=== PATIENT | male | born 1935 | race Caucasian/White ===

== ENCOUNTER 2016-11-06 20:58 | Observation (INO) | payer OTHER ==
[~2016-11-06] VITALS: Ht 162.6 cm; Wt 78.0 kg
[~2016-11-06 20:58] MED LIST: ADVAIR 250/501 DISK IH; ASPIRIN325 MG PO; LESCOL40 MG PO; LEVOTHYROXINE50 MCG PO; LEVOTHYROXINE75 MCG PO; LIPITOR80 MG PO; MAVIK4 MG PO; MOBIC15 MG PO; SERTRALINE HCL50 MG PO; SPIRIVA1 INHALATI IH; ZOCOR40 MG PO
[2016-11-06 22:18] LABS: CHLORIDE 111 mEq/L (99-109); POTASSIUM 4.1 mEq/L (3.7-5.4); SODIUM 141 mEq/L (136-147)
[2016-11-06 22:20] LABS: GLUCOSE 119 mg/dL (70-99); HEMATOCRIT 38.5 % (38.0-50.0); MCH 33.9 PG (29.0-34.0); MCHC 34.5 G/DL (30.0-36.0); MCV 98.2 FL (86-99); MEAN PLAT.VOLUME 12.4 uM^3 (9.0-12.4); PLATELET COUNT 121 K/uL (156-360); RBC DIS.WIDTH-CV 13.4 % (11.8-14.6); RBC DIS.WIDTH-SD 48.8 % (39-53); RED BLOOD COUNT 3.92 M/uL (4.00-5.50); WHITE BLOOD COUNT 4.5 K/uL (4.1-10.2)
[2016-11-06 22:21] LABS: ANION GAP 6 MEQ/L (2-14)
[2016-11-06 22:24] LABS: GFR ESTIMATE (CALCULATED) > 59 mL/min/
[2016-11-06 22:25] LABS: UREA NITROGEN (BUN) 27 mg/dL (9-23)
[2016-11-07 00:42] LABS: INTER. NORMALIZED RATIO 1.1; PROTHROMBIN TIME 10.7 (9.2-11.2); PTT 25.3 (25-32)
[2016-11-07 00:46] LABS: TOTAL BILIRUBIN 0.3 mg/dL (0.0-1.0)
[2016-11-07 00:47] LABS: ALKALINE PHOSPHATASE 68 IU/L (3-129)
[2016-11-07 00:48] LABS: ADD MIUA? NO; BILIRUBIN NEGATIVE; BLOOD NEGATIVE; COLOR YELLOW ((YELLOW)); GLUCOSE (STRIP) NEGATIVE; KETONES NEGATIVE; LEUKOCYTES NEGATIVE; NITRITE NEGATIVE; PROTEIN (STRIP) NEGATIVE; SPECIFIC GRAVITY 1.017 (1.000-1.030); UCUL ADDED? NO; UROBILINOGEN 0.2 MG/DL (0.2-1.0)
[2016-11-07 00:50] LABS: DIRECT BILIRUBIN 0.1 mg/dL (0.0-0.3)
[2016-11-07 00:51] LABS: LIPASE 150 U/L (1.0-51.0)
[2016-11-07 01:03] LABS: TROP-I INTERPRETATION NEGATIVE; TROPONIN-I < 0.01 ng/mL (0.0-0.30)
[2016-11-07] MEDS ORDERED: LITE COAT ASPI325 M1 PO (01:07)
[2016-11-07] MEDS ORDERED: LIPITOR80 MG PO (01:07)
[2016-11-07 03:36] LABS: SERUM ETHYL ALCOHOL < 10 mg/dL
[2016-11-07 04:16] LABS: HDL CHOLESTEROL 38 MG/DL (Desirable>=40); LDL CHOLESTEROL 55 mg/dL (Desirable<100); NON-HDL CHOLESTEROL 92 mg/dL (Desirable<160); TOTAL CHOLESTEROL 130 mg/dL (Desirable<200); TRIGLYCERIDES 183 MG/DL (Normal: <150)
[2016-11-07 07:12] LABS: Estimated Average Glucose 140 mg/dL (70-123); HEMOGLOBIN A1c (GLYCOHEMOGLOB) 6.5 % HGB (Below 5.7)
[2016-11-07 08:38] VITALS: BP 146/87
[2016-11-07 11:47] VITALS: BP 175/86
[2016-11-07 11:56] LABS: AMPHETAMINES QUANT VALUE 0 NG/ML; BARBITUATES QUANT VALUE 0 NG/ML; BENZODIAZEPINES QUANT VALUE 0 NG/ML; BENZODIAZEPINES, URINE SCREEN Negative (200 ng/mL); MARIJUANA QUANT VALUE 0 NG/ML; OPIATES QUANTITATIVE VALUE 0 NG/ML; PHENCYCLIDINE QUANT VALUE 0 NG/ML
[2016-11-07 15:35] VITALS: BP 116/59
[2016-11-07 21:55] VITALS: BP 154/83
[2016-11-08 04:00] VITALS: BP 184/84
[2016-11-08 06:09] LABS: EOSINOPHIL (%) 7.9 % (0-5); EOSINOPHIL COUNT 0.4 K/uL (0-0.3); HEMATOCRIT 36.6 % (38.0-50.0); IMMATURE GRANULOCYTE (%) 0.2 % (0.0-0.7); INSTRUMENT ABS NEUTROPHIL CT 1.5 K/uL; LYMPHOCYTE COUNT 2.3 K/uL (1.0-2.8); MCH 34.5 PG (29.0-34.0); MCHC 35.2 G/DL (30.0-36.0); MCV 97.9 FL (86-99); MEAN PLAT.VOLUME 12.1 uM^3 (9.0-12.4); MONOCYTE COUNT 0.5 K/uL (0-0.8); NEUTROPHIL (%) 31.9 % (45-76); NEUTROPHIL COUNT 1.5 K/uL (1.8-6.4); PLATELET COUNT 118 K/uL (156-360); RBC DIS.WIDTH-CV 13.2 % (11.8-14.6); RED BLOOD COUNT 3.74 M/uL (4.00-5.50); WHITE BLOOD COUNT 4.7 K/uL (4.1-10.2)
[2016-11-08 06:34] LABS: ANION GAP 4 MEQ/L (2-14); CHLORIDE 104 MEQ/L (99-109); GFR ESTIMATE (CALCULATED) > 59 mL/min/; GLUCOSE 99 mg/dL (70-99); POTASSIUM 4.1 MEQ/L (3.7-5.4); SAMPLE HEMOLYSIS CHECK 0; SAMPLE ICTERIC CHECK 0; SAMPLE LIPEMIA CHECK 0; SODIUM 135 MEQ/L (136-147); UREA NITROGEN (BUN) 22 mg/dL (9-23)
[2016-11-08 08:57] VITALS: BP 125/66
[2016-11-08 13:01] VITALS: BP 119/64
[2016-11-08] MEDS ORDERED: AMLODIPINE BESYL5 MG PO (13:04)
[2016-11-08] MEDS ORDERED: LISINOPRIL40 MG PO (13:04)
[2016-11-08] MEDS ORDERED: DOCUSATE SODIU100 MG PO (13:05)
== END 2016-11-08 13:53 | disposition home or self-care (01) ==
LOC: EME 20:58 → EDOF 11-07 02:26 → 5WEST 11-07 08:29
PROVIDERS: Emergency Medicine; Internal Medicine; Physician Assistant Medical
DX: G45.9 Transient cerebral ischemic attack, unspecified (principal); I16.0 Hypertensive urgency; E03.9 Hypothyroidism, unspecified; Z86.73 Personal history of transient ischemic attack (TIA), and cerebral infarction without residual deficits; E78.5 Hyperlipidemia, unspecified; Z85.46 Personal history of malignant neoplasm of prostate
CPT/HCPCS: 70450; 70551; 71020; 80048; 80061; 80076; 80306 90; 81003; 83036; 83690; 84484; 85025; 85027; 85610; 85730; 93005; 93306; 93880; 99281; 99285; G0378; G0480; G8978 GP CH; G8979 GP CH; G8980 GP CH; J1644; J2060; J7030